=== PATIENT | male | born 1960 | race Caucasian/White ===

== ENCOUNTER 2018-08-26 10:37 | Inpatient (IN) | payer OTHER ==
[2018-08-26] MEDS ORDERED: SODIUM CHLORIDE FLUSH SYRINGE 10 ML IV PRN (12:06)
[2018-08-26] MEDS ORDERED: TYLENOL PO PRN (12:06)
[2018-08-26] MEDS ORDERED: ZOFRAN IV PRN (12:06)
[2018-08-26] MEDS ORDERED: NITROSTAT SL PRN (12:06)
[2018-08-26] MEDS ORDERED: NARCAN 0.4 MG/1 ML IV PRN (12:06)
[2018-08-26] MEDS ORDERED: MORPHINE IV PRN (12:06)
[2018-08-26] MEDS ORDERED: PROVENTIL IH PRN (12:06)
--- NOTE | 2018-08-26 12:14 | History and Physical Report ---
History of Present Illness Date of examination: 08/26/18 Date of admission: 08/26/18 11:08 Chief complaint: shortness of breath History of present illness: 57 year male with past medical hx CHF, last known EF of 32% presenting from direct admit from the PCP office. Patient reports that he has hx of CHF but in the last 2 years has been lost to follow up. He presented to his primary care doctor today complaining of orthopnea for the past 2 weeks. He denies any chest pain, nausea, vomiting or diarrhea, He has been out of his medications for about 2 years. He reports that he was previously evaluated for AICD but at the time chose not to proceed. Past History Past Medical History: heart failure, hypertension Past Surgical History: Other (eye surgery) Social history: Family history: no significant family history Medications and Allergies Allergies Allergy/AdvReac Type Severity Reaction Status Date / Time No Known Allergies Allergy Verified 08/26/18 10:40 Active Meds: Active Medications Acetaminophen (Tylenol) 650 mg PO Q4H PRN PRN Reason: Pain MILD(1-3)/Fever >100.5/YAN Albuterol (Proventil) 2.5 mg IH Q3HRT PRN PRN Reason: Shortness Of Breath Carvedilol (Coreg) 12.5 mg PO BID WANDA Famotidine (Pepcid) 10 mg PO BID WANDA Furosemide (Lasix) 40 mg IV BID@0600,1800 WANDA Lisinopril (Zestril) 5 mg PO QDAY WANDA Morphine Sulfate (Morphine) 2 mg IV Q4H PRN PRN Reason: Pain, Moderate (4-6) Naloxone HCl (Narcan 0.4 Mg/1 Ml) 0.1 mg IV Q2MIN PRN PRN Reason: Res Rate </= 8 or 02 SAT < 92% Nitroglycerin (Nitrostat) 0.4 mg SL .Q5MIN PRN PRN Reason: Chest Pain Ondansetron HCl (Zofran) 4 mg IV Q8H PRN PRN Reason: Nausea And Vomiting Sodium Chloride (Sodium Chloride Flush Syringe 10 Ml) 10 ml IV BID WANDA Sodium Chloride (Sodium Chloride Flush Syringe 10 Ml) 10 ml IV PRN PRN PRN Reason: LINE FLUSH Review of Systems All systems: negative Constitutional: no weight loss, no weight gain, no fever, no chills, no sweats, no night sweats, no fatigue, no weakness, no malaise, no lethargy, no poor appetite, no daytime sleepiness, no chronic pain Cardiovascular: orthopnea, shortness of breath, dyspnea on exertion Respiratory: shortness of breath, dyspnea on exertion, no cough, no cough with sputum, no excessive sputum, no hemoptysis, no congestion, no wheezing, no pleurisy, no pain, no sleep apnea, no respiratory infections, no home oxygen Gastrointestinal: no abdominal pain, no nausea, no diarrhea, no constipation, no change in bowel habits, no hematemesis, no melena, no loss of appetite, no early satiety, no indigestion, no belching, no dyspepsia/bloating, no lactose intolerance Genitourinary Male: no hematuria, no discharge, no urinary frequency Rectal: no pain, no bleeding Musculoskeletal: no neck pain, no shooting arm pain, no low back pain, no shooting leg pain, no morning stiffness, no muscle weakness, no atrophy, no fractures Integumentary: no rash, no pruritis, no redness, no wounds, no lesions, no darkening of skin, no acne, no dryness Neurological: no transient paralysis, no tingling, no syncope, no aphasia, no change in mentation, no sensory deficit, no double vision, no hearing difficulties Psychiatric: no memory loss, no insomnia, no change in appetite Endocrine: no polyphagia, no polydipsia, no polyuria, no weight change, no deepening of the voice Hematologic/Lymphatic: no easy bruising Exam - Constitutional General appearance: Present: mild distress. Absent: well-nourished - EENT Eyes: Present: PERRL, EOM intact ENT: hearing intact, clear oral mucosa, dentition normal - Neck Neck: Present: supple, normal ROM - Respiratory Respiratory effort: normal Respiratory: bilateral: CTA - Cardiovascular Rhythm: regular Heart Sounds: Absent: systolic murmur, diastolic murmur - Extremities Extremities: no ischemia, pulses intact, pulses symmetrical, No edema, normal temperature, normal color, Full ROM Extremity abnormal: edema (1+ bilaterally) Peripheral Pulses: within normal limits - Abdominal General gastrointestinal: Present: soft, non-tender, non-distended, normal bowel sounds - Integumentary Integumentary: Present: clear, warm, dry - Musculoskeletal Musculoskeletal: strength equal bilaterally - Psychiatric Psychiatric: appropriate mood/affect, cooperative - Neurologic Neurologic: CNII-XII intact, moves all extremities - Allied Health Allied health notes reviewed: nursing Results - Labs CBC & Chem 7: 08/26/18 14:58 08/26/18 14:58 Assessment and Plan Assessment and plan: 57 year male with past medical hx CHF, last known EF of 32% presenting from direct admit from the PCP office. Patient reports that he has hx of CHF but in the last 2 years has been lost to follow up. He presented to his primary care doctor today complaining of orthopnea for the past 2 weeks. He denies any chest pain, nausea, vomiting or diarrhea, He has been out of his medications for about 2 years. He reports that he was previously evaluated for AICD but at the time chose not to proceed. Exertional dyspnea concerning for Acute on Chronic Systolic Heart failure exacerbation PVC ON EKG Gastritis by hx Hyperglycemia by hx Hyperlipidemia BPH s/p vasectomy in 1993 in [place] hx of Bilateral eye surgery plan Admit to telemetry CHF protocol, daily weight, strict I/O, low salt IV lasix, ASA, BB, PPI ECHO Chest Xray Cardiology consult DVT/GI prophy Plan of care discussed with patient and family and cardiology Advance Directives: Yes Plan of care discussed with patient/family: Yes
[2018-08-26 15:13] LABS: Basophils % (Auto) 0.9 % (0.0-1.8); Eosinophils % (Auto) 0.6 % (0.0-4.3); Hematocrit 44.1 % (35.5-45.6); Hemoglobin 14.7 gm/dl (11.8-15.2); Lymphocytes # (Auto) 1.1 K/mm3 (1.2-5.4); Lymphocytes % (Auto) 22.2 % (13.4-35.0); Mean Corpuscular HGB Conc 33 % (32-34); Mean Corpuscular Volume 89 fl (84-94); Monocytes # (Auto) 0.4 K/mm3 (0.0-0.8); Monocytes % (Auto) 9.2 % (0.0-7.3); Red Blood Count 4.96 M/mm3 (3.65-5.03)
[2018-08-26 15:15] LABS: Platelet Count 158 K/mm3 (140-440)
[2018-08-26 16:11] LABS: BUN/Creatinine Ratio 23; Blood Urea Nitrogen 18 mg/dL (9-20); Calcium 8.7 mg/dL (8.4-10.2); Hemolysis Index 12
[2018-08-26] MEDS: LASIX IV SCH (19:03)
--- NOTE | 2018-08-26 19:49 | Consultation ---
History of Present Illness Consult date: 08/26/18 Consult reason: shortness of breath History of present illness: Patient is a 57-year-old man admitted from his primary care doctor's office for increasing shortness of breath and abdominal distention. Patient reports a history of long-standing, nonischemic cardiomyopathy. He states that several years ago he underwent a cardiac catheterization that demonstrated normal coronary arteries, left ventricular ejection fraction about 30%. He was placed on standard heart failure medical therapy, but could not continue follow-up with his sports psychologist due to a change in his medical insurance. His primary care doctor continued refill of his medications until about 2 years ago when he completely stopped taking medications. It is unclear why he decided to discontinue medical therapy. Currently he has no chest pain, but has intermittent palpitations. He describes a history of ventricular ectopy which has been on his ECGs and during his pulse analysis for several years. EKG today is sinus rhythm, frequent, multiform PVCs, right bundle branch block but no acute ST or T-wave changes. A chest x- ray is pending. Past History Past Medical History: heart failure, hypertension Past Surgical History: Other (eye surgery) Social history: Family history: no significant family history Medications and Allergies Allergies Allergy/AdvReac Type Severity Reaction Status Date / Time No Known Allergies Allergy Verified 08/26/18 10:40 Active Meds: Active Medications Acetaminophen (Tylenol) 650 mg PO Q4H PRN PRN Reason: Pain MILD(1-3)/Fever >100.5/YAN Albuterol (Proventil) 2.5 mg IH Q3HRT PRN PRN Reason: Shortness Of Breath Carvedilol (Coreg) 12.5 mg PO BID WANDA Famotidine (Pepcid) 10 mg PO BID [facility] Furosemide (Lasix) 40 mg IV BID@0600,1800 WANDA Last Admin: 08/26/18 19:03 Dose: 40 mg Documented by: Lisinopril (Zestril) 5 mg PO QDAY WANDA Morphine Sulfate (Morphine) 2 mg IV Q4H PRN PRN Reason: Pain, Moderate (4-6) Naloxone HCl (Narcan 0.4 Mg/1 Ml) 0.1 mg IV Q2MIN PRN PRN Reason: Res Rate </= 8 or 02 SAT < 92% Nitroglycerin (Nitrostat) 0.4 mg SL .Q5MIN PRN PRN Reason: Chest Pain Ondansetron HCl (Zofran) 4 mg IV Q8H PRN PRN Reason: Nausea And Vomiting Sodium Chloride (Sodium Chloride Flush Syringe 10 Ml) 10 ml IV BID WANDA Sodium Chloride (Sodium Chloride Flush Syringe 10 Ml) 10 ml IV PRN PRN PRN Reason: LINE FLUSH Review of Systems Cardiovascular: palpitations, shortness of breath, no chest pain, no orthopnea, no rapid/irregular heart beat, no edema, no syncope, no lightheadedness Physical Examination Vital Signs Pulse 112 H 08/26/18 12:14 General appearance: no acute distress HEENT: Positive: PERRL Neck: Positive: neck supple Cardiac: Positive: Irregularly Regular Lungs: Positive: Decreased Breath Sounds Neuro: Positive: Grossly Intact Abdomen: Positive: Soft Male genitourinary: Positive: deferred Skin: Positive: Clear Extremities: Absent: edema Results 08/26/18 14:58 08/26/18 14:58 CBC 08/26/18 Range/Units 14:58 WBC 4.8 (4.5-11.0) K/mm3 RBC 4.96 (3.65-5.03) M/mm3 Hgb 14.7 (11.8-15.2) gm/dl Hct 44.1 (35.5-45.6) % Plt Count 158 (140-440) K/mm3 Lymph # 1.1 L (1.2-5.4) K/mm3 [place] # 0.4 (0.0-0.8) K/mm3 Eos # 0.0 (0.0-0.4) K/mm3 Baso # 0.0 (0.0-0.1) K/mm3 Comprehensive Metabolic Panel 08/26/18 Range/Units 14:58 Sodium 137 (137-145) mmol/L Potassium 3.9 (3.6-5.0) mmol/L Chloride 102.7 (98-107) mmol/L Carbon Dioxide 22 (22-30) mmol/L BUN 18 (9-20) mg/dL Creatinine 0.8 (0.8-1.5) mg/dL Glucose 142 H (75-100) mg/dL Calcium 8.7 (8.4-10.2) mg/dL EKG interpretations - Telemetry EKG Rhythm: Sinus Rhythm Assessment and Plan - Patient Problems (1) Shortness of breath Current Visit: Yes Status: Acute Plan to address problem: Shortness of breath and abnormal distention in a patient with a long history of dilated cardiomyopathy with systolic systolic left ventricular dysfunction, noncompliant with medical therapy for 2 years. We will get an echocardiogram for left ventricular function assessment, and resume standard guidelines directed medical therapy for systolic heart failure.
[2018-08-26 19:52] LABS: Creatine Kinase MB 1.9 ng/mL (0.0-4.0)
--- NOTE | 2018-08-26 19:53 | XRay Report ---
PROCEDURE: XR CHEST 1V AP TECHNIQUE: Frontal portable view of the chest HISTORY: chf COMPARISONS: Chest x-ray dated August 17, 2014 is not available for review at the time of this dictati on. FINDINGS: There is prominence of the interstitial markings in both lungs. There is evidence of a moderate sized right pleural fluid collection and small left pleural fluid col lection with associated pulmonary consolidation in both lung bases, right greater than left. The cardiac silhouette is enlarged. There is prominence of the pulmonary venous vasculature suggestive of pulmonary venous congestion. The thoracic aorta is unremarkable. The bony structures are notable for degenerative change of the shoulder joints bilaterally. IMPRESSION: 1. Enlarged cardiac silhouette with prominence of the interstitial markings, bilateral pleural effusi ons, right greater than left and evidence of pulmonary venous congestion. These findings are most sug gestive of CHF. This document is electronically signed by Ngozi Galvan MD., August 26 2018 07:51:53 PM ET
[2018-08-26] MEDS: PEPCID PO SCH (21:43)
[2018-08-26] MEDS: COREG PO SCH (21:43)
[2018-08-26] MEDS: SODIUM CHLORIDE FLUSH SYRINGE 10 ML IV SCH (21:44)
[2018-08-27 01:16] LABS: Creatine Kinase MB 1.7 ng/mL (0.0-4.0)
[2018-08-27] MEDS: LASIX IV SCH ×2 (05:40→18:16)
[2018-08-27 06:59] LABS: Chol/HDL Ratio 2.48 %
[2018-08-27] MEDS: ZESTRIL PO SCH ×2 (10:30→10:31)
[2018-08-27] MEDS: ALDACTONE PO SCH (10:30)
[2018-08-27] MEDS: COREG PO SCH ×2 (10:30→22:59)
[2018-08-27] MEDS: SODIUM CHLORIDE FLUSH SYRINGE 10 ML IV SCH ×2 (10:31→21:22)
[2018-08-27] MEDS: PEPCID PO SCH ×2 (10:31→21:22)
--- NOTE | 2018-08-27 12:27 | Progress Note ---
Assessment and Plan - Patient Problems (1) Shortness of breath Current Visit: Yes Status: Acute Plan to address problem: Shortness of breath and abnormal distention in a patient with a long history of dilated cardiomyopathy with systolic systolic left ventricular dysfunction, noncompliant with medical therapy for 2 years. His chest x-ray reviewed by me shows a moderate sized unilateral right pleural effusion, possibly due to heart failure. Echocardiogram shows a severe dilated cardiomyopathy with left ventricular ejection fraction approximately 15%. Recommendations: Continue intravenous diuresis, LUIS inhibitor and beta kevon therapy. Add intravenous milrinone for inotropic support. Add baby aspirin and spironolactone. Consider pulmonary consultation for right pleural effusion. Subjective Date of service: 08/27/18 Interval history: Patient feels better, shortness of breath has improved, still has some abdominal distention. No edema. No chest pain. His chest x-ray reviewed by me shows a moderate sized unilateral right pleural effusion, possibly due to heart failure. Echocardiogram shows a severe dilated cardiomyopathy with left ventricular ejection fraction approximately 15%. Objective Vital Signs Temp Pulse Resp BP BP Pulse Ox 08/27/18 08:00 97.6 F 67 18 123/74 98 08/27/18 06:04 70 18 98 08/27/18 05:16 98.0 F 47 L 18 107/66 97 08/27/18 04:00 68 08/27/18 00:14 98 08/26/18 23:47 98.0 F 48 L 20 99/76 97 08/26/18 21:43 65 129/80 08/26/18 20:14 52 L 08/26/18 17:22 98.1 F 18 98/62 08/26/18 12:26 97.9 F 18 137/86 - Physical Examination General: No Apparent Distress HEENT: Positive: PERRL Neck: Positive: neck supple Cardiac: Positive: Reg Rate and Rhythm Lungs: Positive: Decreased Breath Sounds Neuro: Positive: Grossly Intact Abdomen: Positive: Soft Skin: Positive: Clear Extremities: Absent: edema - Labs and Meds Cardiac Enzymes 08/26/18 08/27/18 Range/Units 18:52 00:49 CK-MB (CK-2) 1.9 1.7 (0.0-4.0) ng/mL Lipids 08/27/18 Range/Units 05:55 Triglycerides 58 (2-149) mg/dL Cholesterol 117 (50-199) mg/dL HDL Cholesterol 47 (40-59) mg/dL Cholesterol/HDL Ratio 2.48 % CBC 08/26/18 Range/Units 14:58 WBC 4.8 (4.5-11.0) K/mm3 RBC 4.96 (3.65-5.03) M/mm3 Hgb 14.7 (11.8-15.2) gm/dl Hct 44.1 (35.5-45.6) % Plt Count 158 (140-440) K/mm3 Lymph # 1.1 L (1.2-5.4) K/mm3 [place] # 0.4 (0.0-0.8) K/mm3 Eos # 0.0 (0.0-0.4) K/mm3 Baso # 0.0 (0.0-0.1) K/mm3 Comprehensive Metabolic Panel 08/26/18 Range/Units 14:58 Sodium 137 (137-145) mmol/L Potassium 3.9 (3.6-5.0) mmol/L Chloride 102.7 (98-107) mmol/L Carbon Dioxide 22 (22-30) mmol/L BUN 18 (9-20) mg/dL Creatinine 0.8 (0.8-1.5) mg/dL Glucose 142 H (75-100) mg/dL Calcium 8.7 (8.4-10.2) mg/dL
[2018-08-27] MEDS: HALFPRIN EC PO SCH (16:52)
[2018-08-27] MEDS: MILRINONE-D5W 20 MG/100 ML 20 MG/100 ML BAG IV SCH (16:52)
--- NOTE | 2018-08-27 21:06 | Progress Note ---
Assessment and Plan Assessment and plan: 57 year male with past medical hx CHF, last known EF of 32% presenting from direct admit from the PCP office. Patient reports that he has hx of CHF but in the last 2 years has been lost to follow up. He presented to his primary care doctor today complaining of orthopnea for the past 2 weeks. He denies any chest pain, nausea, vomiting or diarrhea, He has been out of his medications for about 2 years. He reports that he was previously evaluated for AICD but at the time chose not to proceed. --Acute on Chronic Systolic Heart failure exacerbation EF 10-15% , current medications Input output monitoring, low sodium diet, fluid restriction Cardiology following, possible evaluation for AICD . --Hypertension; continue current antihypertensives and when necessary medications --Acute gastritis; PPI, supportive care --Right pleural effusion; continue diuresis Pulmonary consult, possible thoracentesis if needed --DVT prophylaxis; Lovenox Monitor the patient closely and adjust management as needed Plan of care is reviewed with the patient and family members in the room History Interval history: Patient seen and examined medical records reviewed Patient feels slightly better mild shortness of breath Vital Signs noted Hospitalist Physical - Constitutional Vitals: Temp Pulse Resp BP Pulse Ox 98.4 F 56 L 16 108/74 98 08/27/18 19:27 08/27/18 19:27 08/27/18 20:35 08/27/18 19:27 08/27/18 20:35 General appearance: Present: no acute distress, well-nourished - EENT Eyes: Present: PERRL, EOM intact - Neck Neck: Present: supple, normal ROM - Respiratory Respiratory effort: normal Respiratory: bilateral: diminished, rales, negative: rhonchi, wheezing - Cardiovascular Rhythm: regular Heart Sounds: Present: S1 & S2 - Extremities Extremities: no ischemia Extremity abnormal: edema - Abdominal General gastrointestinal: soft, non-tender, non-distended, normal bowel sounds - Integumentary Integumentary: Present: clear, warm - Psychiatric Psychiatric: appropriate mood/affect, cooperative - Neurologic Neurologic: CNII-XII intact, moves all extremities Results - Labs CBC & Chem 7: 08/26/18 14:58 08/26/18 14:58 Labs: Laboratory Last Values WBC 4.8 K/mm3 (4.5-11.0) 08/26/18 14:58 RBC 4.96 M/mm3 (3.65-5.03) 08/26/18 14:58 Hgb 14.7 gm/dl (11.8-15.2) 08/26/18 14:58 Hct 44.1 % (35.5-45.6) 08/26/18 14:58 MCV 89 fl (84-94) 08/26/18 14:58 MCH 30 pg (28-32) 08/26/18 14:58 MCHC 33 % (32-34) 08/26/18 14:58 RDW 14.0 % (13.2-15.2) 08/26/18 14:58 Plt Count 158 K/mm3 (140-440) 08/26/18 14:58 Lymph % (Auto) 22.2 % (13.4-35.0) 08/26/18 14:58 [place] % (Auto) 9.2 % (0.0-7.3) H 08/26/18 14:58 Eos % (Auto) 0.6 % (0.0-4.3) 08/26/18 14:58 Baso % (Auto) 0.9 % (0.0-1.8) 08/26/18 14:58 Lymph # 1.1 K/mm3 (1.2-5.4) L 08/26/18 14:58 [place] # 0.4 K/mm3 (0.0-0.8) 08/26/18 14:58 Eos # 0.0 K/mm3 (0.0-0.4) 08/26/18 14:58 Baso # 0.0 K/mm3 (0.0-0.1) 08/26/18 14:58 Seg Neutrophils % 67.1 % (40.0-70.0) 08/26/18 14:58 Seg Neutrophils # 3.2 K/mm3 (1.8-7.7) 08/26/18 14:58 Sodium 137 mmol/L (137-145) 08/26/18 14:58 Potassium 3.9 mmol/L (3.6-5.0) 08/26/18 14:58 Chloride 102.7 mmol/L (98-107) 08/26/18 14:58 Carbon Dioxide 22 mmol/L (22-30) 08/26/18 14:58 Anion Gap 16 mmol/L 08/26/18 14:58 BUN 18 mg/dL (9-20) 08/26/18 14:58 Creatinine 0.8 mg/dL (0.8-1.5) 08/26/18 14:58 Estimated GFR > 60 ml/min 08/26/18 14:58 BUN/Creatinine Ratio 23 % 08/26/18 14:58 Glucose 142 mg/dL (75-100) H 08/26/18 14:58 Calcium 8.7 mg/dL (8.4-10.2) 08/26/18 14:58 Total Creatine Kinase 62 units/L (55-170) 08/27/18 00:49 CK-MB (CK-2) 1.7 ng/mL (0.0-4.0) 08/27/18 00:49 CK-MB (CK-2) Rel Index 2.7 (0-4) 08/27/18 00:49 Troponin T < 0.010 ng/mL (0.00-0.029) 08/27/18 00:49 NT-Pro-B Natriuret Pep 6923 pg/mL (0-900) H 08/26/18 14:58 Triglycerides 58 mg/dL (2-149) 08/27/18 05:55 Cholesterol 117 mg/dL (50-199) 08/27/18 05:55 LDL Cholesterol Direct 70 mg/dL (50-130) 08/27/18 05:55 HDL Cholesterol 47 mg/dL (40-59) 08/27/18 05:55 Cholesterol/HDL Ratio 2.48 % 08/27/18 05:55 Active Medications - Current Medications Current Medications: Generic Name Dose Route Start Last Admin Trade Name Freq PRN Reason Stop Dose Admin Acetaminophen 650 mg 08/26/18 12:06 Tylenol PO Q4H PRN Pain MILD(1-3)/Fever >100.5/YAN Albuterol 2.5 mg 08/26/18 12:06 Proventil IH Q3HRT PRN Shortness Of Breath Aspirin 81 mg 08/27/18 13:00 08/27/18 16:52 Halfprin Ec PO 81 mg QDAY WANDA Administration Carvedilol 12.5 mg 08/26/18 22:00 08/27/18 10:30 Coreg PO 12.5 mg BID WANDA Administration Famotidine 10 mg 08/26/18 22:00 08/27/18 10:31 Pepcid PO 10 mg BID WANDA Administration Furosemide 40 mg 08/26/18 18:00 08/27/18 18:16 Lasix IV 40 mg BID@0600,1800 [facility] Administration Milrinone Lactate/Dextrose 20 mg in 100 mls @ 8.831 mls/hr 08/27/18 13:00 08/27/18 16:52 Milrinone-D5w 20 Mg/100 Ml IV 08/30/18 12:59 0.375 mcg/kg/min TITR WANDA 8.831 mls/hr Administration 0.375 MCG/KG/MIN Lisinopril 5 mg 08/27/18 10:00 08/27/18 10:30 Zestril PO Not Given QDAY [facility] Morphine Sulfate 2 mg 08/26/18 12:06 Morphine IV Q4H PRN Pain, Moderate (4-6) Naloxone HCl 0.1 mg 08/26/18 12:06 Narcan 0.4 Mg/1 Ml IV Q2MIN PRN Res Rate </= 8 or 02 SAT < 92% Nitroglycerin 0.4 mg 08/26/18 12:06 Nitrostat SL .Q5MIN PRN Chest Pain Ondansetron HCl 4 mg 08/26/18 12:06 Zofran IV Q8H PRN Nausea And Vomiting Sodium Chloride 10 ml 08/26/18 22:00 08/27/18 10:31 Sodium Chloride Flush Syringe 10 Ml IV 10 ml BID WANDA Administration Sodium Chloride 10 ml 08/26/18 12:06 Sodium Chloride Flush Syringe 10 Ml IV PRN PRN LINE FLUSH Spironolactone 25 mg 08/27/18 10:00 08/27/18 10:30 Aldactone PO 25 mg QDAY WANDA Administration
[2018-08-28] MEDS: MILRINONE-D5W 20 MG/100 ML 20 MG/100 ML BAG IV SCH ×2 (01:41→18:06)
[2018-08-28] MEDS: LASIX IV SCH ×2 (05:50→18:06)
[2018-08-28] MEDS: PEPCID PO SCH ×2 (10:25→23:15)
[2018-08-28] MEDS: COREG PO SCH ×2 (10:25→23:19)
[2018-08-28] MEDS: HALFPRIN EC PO SCH (10:25)
[2018-08-28] MEDS: ALDACTONE PO SCH (10:25)
[2018-08-28] MEDS: SODIUM CHLORIDE FLUSH SYRINGE 10 ML IV SCH ×2 (10:26→23:19)
[2018-08-28] MEDS: ZESTRIL PO SCH (10:32)
--- NOTE | 2018-08-28 11:19 | Progress Note ---
Assessment and Plan Acute systolic heart failure Right pleural effusion Long history of dilated cardiomyopathy noncompliant with medical therapy for 2 years. Echocardiogram shows a severe dilated cardiomyopathy with left ventricular ejection fraction approximately 15%. Recommendations: Continue aggressive management of systolic heart failure to include a trial of intravenous milrinone for inotropic support. Consider pulmonary consultation for right pleural effusion. Will check a TSH and magnesium. LifeVest placement before discharge. Subjective Date of service: 08/28/18 Interval history: Patient has no complaints. Sinus rhythm with frequent PVCs on telemetry. Objective Vital Signs Temp Pulse Resp BP BP Pulse Ox 08/28/18 10:32 77 117/73 08/28/18 10:25 77 117/73 08/28/18 09:03 98.3 F 18 117/73 08/28/18 05:49 104/65 08/28/18 04:36 105/72 08/28/18 03:30 72/36 08/27/18 22:43 105/53 08/27/18 20:35 16 98 08/27/18 19:27 98.4 F 56 L 16 108/74 96 08/27/18 17:53 97.6 F 65 18 103/53 96 08/27/18 12:24 98.0 F 18 107/77 08/27/18 12:00 78 16 97 - Physical Examination General: No Apparent Distress HEENT: Positive: PERRL Neck: Positive: neck supple Cardiac: Positive: Irregularly Regular Lungs: Positive: Decreased Breath Sounds, Rales Neuro: Positive: Grossly Intact Extremities: Absent: edema
--- NOTE | 2018-08-28 19:12 | Progress Note ---
Assessment and Plan Assessment and plan: 57 year male with past medical hx CHF, last known EF of 32% presenting from direct admit from the PCP office. Patient reports that he has hx of CHF but in the last 2 years has been lost to follow up. He presented to his primary care doctor today complaining of orthopnea for the past 2 weeks. He denies any chest pain, nausea, vomiting or diarrhea, He has been out of his medications for about 2 years. He reports that he was previously evaluated for AICD but at the time chose not to proceed. --Right pleural effusion; obviously secondary to CHF continue diuresis,Pulmonary consult if no improvement with diuresis possible thoracentesis if needed --Acute on Chronic Systolic Heart failure exacerbation EF 10-15% , current medications,on Milrinone drip per cardiology Input output monitoring, low sodium diet, fluid restriction Cardiology following, possible evaluation for AICD . --Hypertension; continue current antihypertensives and when necessary medications --Acute gastritis; PPI, supportive care --DVT prophylaxis; Lovenox Monitor the patient closely and adjust management as needed Disposition; discharged home with a LifeVest when available And then patient is stable Discussed with case management, LifeVest will be available in 1-2 days Plan of care is reviewed with the patient, family members at the bedside And his nurse History Interval history: Patient seen and examined medical records reviewed patient is very concerned about his heart Explained in detail, congestive heart failure, LifeVest Evaluation for ICD, and current management Patient is comfortable in no new complaints Vital signs noted Hospitalist Physical - Constitutional Vitals: Temp Pulse Resp BP Pulse Ox 97.6 F 61 18 100/72 98 08/28/18 17:24 08/28/18 17:24 08/28/18 17:24 08/28/18 17:24 08/28/18 17:24 General appearance: Present: no acute distress, well-nourished - EENT Eyes: Present: PERRL, EOM intact - Neck Neck: Present: supple, normal ROM - Respiratory Respiratory effort: normal Respiratory: bilateral: diminished, rales, negative: rhonchi, wheezing - Cardiovascular Rhythm: regular Heart Sounds: Present: S1 & S2 - Extremities Extremities: no ischemia, No edema - Abdominal General gastrointestinal: soft, non-tender, non-distended, normal bowel sounds - Integumentary Integumentary: Present: clear, warm - Psychiatric Psychiatric: appropriate mood/affect, cooperative - Neurologic Neurologic: CNII-XII intact, moves all extremities Results - Labs CBC & Chem 7: 08/26/18 14:58 08/26/18 14:58 Labs: Laboratory Last Values WBC 4.8 K/mm3 (4.5-11.0) 08/26/18 14:58 RBC 4.96 M/mm3 (3.65-5.03) 08/26/18 14:58 Hgb 14.7 gm/dl (11.8-15.2) 08/26/18 14:58 Hct 44.1 % (35.5-45.6) 08/26/18 14:58 MCV 89 fl (84-94) 08/26/18 14:58 MCH 30 pg (28-32) 08/26/18 14:58 MCHC 33 % (32-34) 08/26/18 14:58 RDW 14.0 % (13.2-15.2) 08/26/18 14:58 Plt Count 158 K/mm3 (140-440) 08/26/18 14:58 Lymph % (Auto) 22.2 % (13.4-35.0) 08/26/18 14:58 [place] % (Auto) 9.2 % (0.0-7.3) H 08/26/18 14:58 Eos % (Auto) 0.6 % (0.0-4.3) 08/26/18 14:58 Baso % (Auto) 0.9 % (0.0-1.8) 08/26/18 14:58 Lymph # 1.1 K/mm3 (1.2-5.4) L 08/26/18 14:58 [place] # 0.4 K/mm3 (0.0-0.8) 08/26/18 14:58 Eos # 0.0 K/mm3 (0.0-0.4) 08/26/18 14:58 Baso # 0.0 K/mm3 (0.0-0.1) 08/26/18 14:58 Seg Neutrophils % 67.1 % (40.0-70.0) 08/26/18 14:58 Seg Neutrophils # 3.2 K/mm3 (1.8-7.7) 08/26/18 14:58 Sodium 137 mmol/L (137-145) 08/26/18 14:58 Potassium 3.9 mmol/L (3.6-5.0) 08/26/18 14:58 Chloride 102.7 mmol/L (98-107) 08/26/18 14:58 Carbon Dioxide 22 mmol/L (22-30) 08/26/18 14:58 Anion Gap 16 mmol/L 08/26/18 14:58 BUN 18 mg/dL (9-20) 08/26/18 14:58 Creatinine 0.8 mg/dL (0.8-1.5) 08/26/18 14:58 Estimated GFR > 60 ml/min 08/26/18 14:58 BUN/Creatinine Ratio 23 % 08/26/18 14:58 Glucose 142 mg/dL (75-100) H 08/26/18 14:58 Calcium 8.7 mg/dL (8.4-10.2) 08/26/18 14:58 Magnesium 1.60 mg/dL (1.7-2.3) L 08/28/18 13:28 Total Creatine Kinase 62 units/L (55-170) 08/27/18 00:49 CK-MB (CK-2) 1.7 ng/mL (0.0-4.0) 08/27/18 00:49 CK-MB (CK-2) Rel Index 2.7 (0-4) 08/27/18 00:49 Troponin T < 0.010 ng/mL (0.00-0.029) 08/27/18 00:49 NT-Pro-B Natriuret Pep 6923 pg/mL (0-900) H 08/26/18 14:58 Triglycerides 58 mg/dL (2-149) 08/27/18 05:55 Cholesterol 117 mg/dL (50-199) 08/27/18 05:55 LDL Cholesterol Direct 70 mg/dL (50-130) 08/27/18 05:55 HDL Cholesterol 47 mg/dL (40-59) 08/27/18 05:55 Cholesterol/HDL Ratio 2.48 % 08/27/18 05:55 TSH 1.650 mlU/mL (0.270-4.200) 08/28/18 13:28 Free T4 1.31 ng/dL (0.76-1.46) 08/28/18 13:28 Active Medications - Current Medications Current Medications: Generic Name Dose Route Start Last Admin Trade Name Freq PRN Reason Stop Dose Admin Acetaminophen 650 mg 08/26/18 12:06 Tylenol PO Q4H PRN Pain MILD(1-3)/Fever >100.5/YAN Albuterol 2.5 mg 08/26/18 12:06 Proventil IH Q3HRT PRN Shortness Of Breath Aspirin 81 mg 08/27/18 13:00 08/28/18 10:25 Halfprin Ec PO 81 mg QDAY WANDA Administration Carvedilol 12.5 mg 08/26/18 22:00 08/28/18 10:25 Coreg PO 12.5 mg BID WANDA Administration Famotidine 10 mg 08/26/18 22:00 08/28/18 10:25 Pepcid PO 10 mg BID WANDA Administration Furosemide 40 mg 08/26/18 18:00 08/28/18 18:06 Lasix IV 40 mg BID@0600,1800 WANDA Administration Milrinone Lactate/Dextrose 20 mg in 100 mls @ 8.831 mls/hr 08/27/18 13:00 08/28/18 18:06 Milrinone-D5w 20 Mg/100 Ml IV 08/30/18 12:59 0.375 mcg/kg/min TITR WANDA 8.831 mls/hr Administration 0.375 MCG/KG/MIN Lisinopril 2.5 mg 08/28/18 10:30 08/28/18 10:32 Zestril PO 2.5 mg QDAY WANDA Administration Morphine Sulfate 2 mg 08/26/18 12:06 Morphine IV Q4H PRN Pain, Moderate (4-6) Naloxone HCl 0.1 mg 08/26/18 12:06 Narcan 0.4 Mg/1 Ml IV Q2MIN PRN Res Rate </= 8 or 02 SAT < 92% Nitroglycerin 0.4 mg 08/26/18 12:06 Nitrostat SL .Q5MIN PRN Chest Pain Ondansetron HCl 4 mg 08/26/18 12:06 Zofran IV Q8H PRN Nausea And Vomiting Sodium Chloride 10 ml 08/26/18 22:00 08/28/18 10:26 Sodium Chloride Flush Syringe 10 Ml IV 10 ml BID WANDA Administration Sodium Chloride 10 ml 08/26/18 12:06 Sodium Chloride Flush Syringe 10 Ml IV PRN PRN LINE FLUSH Spironolactone 25 mg 08/27/18 10:00 08/28/18 10:25 Aldactone PO 25 mg QDAY WANDA Administration
[2018-08-29] MEDS: MILRINONE-D5W 20 MG/100 ML 20 MG/100 ML BAG IV SCH ×2 (07:09→17:41)
[2018-08-29] MEDS: LASIX IV SCH ×2 (07:10→19:43)
[2018-08-29] MEDS ORDERED: MAGNESIUM SULFATE 2GM/50ML 2 GM/50 ML BAG IV ONE (10:04)
--- NOTE | 2018-08-29 10:10 | Progress Note ---
Assessment and Plan Assessment and plan: 57 year male with past medical hx CHF, last known EF of 32% presenting from direct admit from the PCP office. Patient reports that he has hx of CHF but in the last 2 years has been lost to follow up. He presented to his primary care doctor today complaining of orthopnea for the past 2 weeks. He denies any chest pain, nausea, vomiting or diarrhea, He has been out of his medications for about 2 years. He reports that he was previously evaluated for AICD but at the time patient chose not to proceed. --Acute on Chronic Systolic Heart failure exacerbation EF 10-15% , on anti-failure medications, Cardiology started milrinone drip for 48 hours Input output monitoring, low sodium diet, fluid restriction possible evaluation for AICD as outpatient LifeVest prior to discharge --Right pleural effusion; secondary to CHF continue diuresis, Pulmonary consult and possible thoracentesis if needed --Hypertension; continue current antihypertensives and when necessary medications --Acute gastritis; PPI, supportive care --DVT prophylaxis; Lovenox Monitor the patient closely and adjust management as needed Ambulate as tolerated LifeVest expected this evening or tomorrow per case management Possible discharge tomorrow if stable Plan of care is reviewed with the patient and multiple family members at the bedside Answered all the questions History Interval history: Patient seen and examined medical records reviewed Patient feels slightly better, on milrinone drip Multiple family members in the room Patient denies chest pain or shortness of breath Vital signs noted Hospitalist Physical - Constitutional Vitals: Temp Pulse Resp BP Pulse Ox 98.3 F 36 L 18 113/51 96 08/29/18 09:17 08/29/18 09:17 08/29/18 09:17 08/29/18 09:17 08/29/18 09:17 General appearance: Present: no acute distress, well-nourished - EENT Eyes: Present: PERRL, EOM intact - Neck Neck: Present: supple, normal ROM - Respiratory Respiratory effort: normal Respiratory: bilateral: diminished, rales, negative: rhonchi, wheezing - Cardiovascular Rhythm: regular Heart Sounds: Present: S1 & S2 - Extremities Extremities: no ischemia, No edema - Abdominal General gastrointestinal: soft, non-tender, non-distended, normal bowel sounds - Integumentary Integumentary: Present: clear, warm - Psychiatric Psychiatric: appropriate mood/affect, cooperative - Neurologic Neurologic: CNII-XII intact, moves all extremities Results - Labs CBC & Chem 7: 08/26/18 14:58 08/26/18 14:58 Labs: Laboratory Last Values WBC 4.8 K/mm3 (4.5-11.0) 08/26/18 14:58 RBC 4.96 M/mm3 (3.65-5.03) 08/26/18 14:58 Hgb 14.7 gm/dl (11.8-15.2) 08/26/18 14:58 Hct 44.1 % (35.5-45.6) 08/26/18 14:58 MCV 89 fl (84-94) 08/26/18 14:58 MCH 30 pg (28-32) 08/26/18 14:58 MCHC 33 % (32-34) 08/26/18 14:58 RDW 14.0 % (13.2-15.2) 08/26/18 14:58 Plt Count 158 K/mm3 (140-440) 08/26/18 14:58 Lymph % (Auto) 22.2 % (13.4-35.0) 08/26/18 14:58 [place] % (Auto) 9.2 % (0.0-7.3) H 08/26/18 14:58 Eos % (Auto) 0.6 % (0.0-4.3) 08/26/18 14:58 Baso % (Auto) 0.9 % (0.0-1.8) 08/26/18 14:58 Lymph # 1.1 K/mm3 (1.2-5.4) L 08/26/18 14:58 [place] # 0.4 K/mm3 (0.0-0.8) 08/26/18 14:58 Eos # 0.0 K/mm3 (0.0-0.4) 08/26/18 14:58 Baso # 0.0 K/mm3 (0.0-0.1) 08/26/18 14:58 Seg Neutrophils % 67.1 % (40.0-70.0) 08/26/18 14:58 Seg Neutrophils # 3.2 K/mm3 (1.8-7.7) 08/26/18 14:58 Sodium 137 mmol/L (137-145) 08/26/18 14:58 Potassium 3.9 mmol/L (3.6-5.0) 08/26/18 14:58 Chloride 102.7 mmol/L (98-107) 08/26/18 14:58 Carbon Dioxide 22 mmol/L (22-30) 08/26/18 14:58 Anion Gap 16 mmol/L 08/26/18 14:58 BUN 18 mg/dL (9-20) 08/26/18 14:58 Creatinine 0.8 mg/dL (0.8-1.5) 08/26/18 14:58 Estimated GFR > 60 ml/min 08/26/18 14:58 BUN/Creatinine Ratio 23 % 08/26/18 14:58 Glucose 142 mg/dL (75-100) H 08/26/18 14:58 Calcium 8.7 mg/dL (8.4-10.2) 08/26/18 14:58 Magnesium 1.60 mg/dL (1.7-2.3) L 08/28/18 13:28 Total Creatine Kinase 62 units/L (55-170) 08/27/18 00:49 CK-MB (CK-2) 1.7 ng/mL (0.0-4.0) 08/27/18 00:49 CK-MB (CK-2) Rel Index 2.7 (0-4) 08/27/18 00:49 Troponin T < 0.010 ng/mL (0.00-0.029) 08/27/18 00:49 NT-Pro-B Natriuret Pep 6923 pg/mL (0-900) H 08/26/18 14:58 Triglycerides 58 mg/dL (2-149) 08/27/18 05:55 Cholesterol 117 mg/dL (50-199) 08/27/18 05:55 LDL Cholesterol Direct 70 mg/dL (50-130) 08/27/18 05:55 HDL Cholesterol 47 mg/dL (40-59) 08/27/18 05:55 Cholesterol/HDL Ratio 2.48 % 08/27/18 05:55 TSH 1.650 mlU/mL (0.270-4.200) 08/28/18 13:28 Free T4 1.31 ng/dL (0.76-1.46) 08/28/18 13:28 Active Medications - Current Medications Current Medications: Generic Name Dose Route Start Last Admin Trade Name Freq PRN Reason Stop Dose Admin Acetaminophen 650 mg 08/26/18 12:06 Tylenol PO Q4H PRN Pain MILD(1-3)/Fever >100.5/YAN Albuterol 2.5 mg 08/26/18 12:06 Proventil IH Q3HRT PRN Shortness Of Breath Aspirin 81 mg 08/27/18 13:00 08/28/18 10:25 Halfprin Ec PO 81 mg QDAY WANDA Administration Carvedilol 12.5 mg 08/26/18 22:00 08/28/18 23:19 Coreg PO Not Given BID WANDA Famotidine 10 mg 08/26/18 22:00 08/28/18 23:15 Pepcid PO 10 mg BID WANDA Administration Furosemide 40 mg 08/26/18 18:00 08/29/18 07:10 Lasix IV Not Given BID@0600,1800 WANDA Milrinone Lactate/Dextrose 20 mg in 100 mls @ 8.831 mls/hr 08/27/18 13:00 08/29/18 07:09 Milrinone-D5w 20 Mg/100 Ml IV 08/30/18 12:59 0.375 mcg/kg/min TITR WANDA 8.831 mls/hr Administration 0.375 MCG/KG/MIN Magnesium Sulfate 2 gm in 50 mls @ 25 mls/hr 08/29/18 10:04 Magnesium Sulfate 2gm/50ml IV 08/29/18 12:03 ONCE ONE Lisinopril 2.5 mg 08/28/18 10:30 08/28/18 10:32 Zestril PO 2.5 mg QDAY WANDA Administration Morphine Sulfate 2 mg 08/26/18 12:06 Morphine IV Q4H PRN Pain, Moderate (4-6) Naloxone HCl 0.1 mg 08/26/18 12:06 Narcan 0.4 Mg/1 Ml IV Q2MIN PRN Res Rate </= 8 or 02 SAT < 92% Nitroglycerin 0.4 mg 08/26/18 12:06 Nitrostat SL .Q5MIN PRN Chest Pain Ondansetron HCl 4 mg 08/26/18 12:06 Zofran IV Q8H PRN Nausea And Vomiting Sodium Chloride 10 ml 08/26/18 22:00 08/28/18 23:19 Sodium Chloride Flush Syringe 10 Ml IV 10 ml BID WANDA Administration Sodium Chloride 10 ml 08/26/18 12:06 Sodium Chloride Flush Syringe 10 Ml IV PRN PRN LINE FLUSH Spironolactone 25 mg 08/27/18 10:00 08/28/18 10:25 Aldactone PO 25 mg QDAY WANDA Administration
[2018-08-29] MEDS: PEPCID PO SCH ×2 (11:42→21:44)
[2018-08-29] MEDS: ALDACTONE PO SCH (11:43)
[2018-08-29] MEDS: COREG PO SCH ×2 (11:43→21:43)
[2018-08-29] MEDS: HALFPRIN EC PO SCH (11:43)
[2018-08-29] MEDS: SODIUM CHLORIDE FLUSH SYRINGE 10 ML IV SCH ×2 (11:43→21:46)
[2018-08-29] MEDS: ZESTRIL PO SCH (11:44)
--- NOTE | 2018-08-29 12:16 | Progress Note ---
Assessment and Plan - Patient Problems (1) Shortness of breath Current Visit: Yes Status: Acute Plan to address problem: Patient presented with shortness of breath and abdominal distention, due to acute on chronic systolic heart failure. He has shown clinical improvement with diuretics, intravenous milrinone and other guidelines directed medical therapy for systolic heart failure. (2) Nonischemic dilated cardiomyopathy Current Visit: Yes Status: Acute Plan to address problem: Patient presented with shortness of breath and abdominal distention, due to acute on chronic systolic heart failure. He has shown clinical improvement with diuretics, intravenous milrinone and other guidelines directed medical therapy for systolic heart failure. (3) Pleural effusion, right Current Visit: Yes Status: Acute Plan to address problem: We will obtain a pulmonary consultation and continue heart failure treatment. (4) Multifocal PVCs Current Visit: Yes Status: Acute Plan to address problem: Patient has a long history of ventricular ectopy which he describes dating back to 2004. We'll continue medical management including optimal beta blockers. Long-term management will include a recommendation for ICD implant if his cardio myopathy persists after 6 months of optimal medical management. Subjective Date of service: 08/29/18 Interval history: Patient looks and feels better, diuresing well, shortness of breath and abdominal distention are resolving, he is still on intravenous milrinone. As reported, his chest x-ray demonstrated a moderate-sized right pleural effusion. Objective Vital Signs Temp Pulse Resp BP BP Pulse Ox 08/29/18 09:17 98.3 F 36 L 18 113/51 96 08/29/18 04:07 98.0 F 68 20 89/40 92 08/28/18 23:37 97.9 F 46 L 20 90/50 95 08/28/18 22:45 18 98 08/28/18 20:16 98.5 F 44 L 16 99/69 96 08/28/18 20:00 77 08/28/18 17:24 97.6 F 61 18 100/72 98 08/28/18 16:52 48 L 37 H 97 08/28/18 15:11 89/62 08/28/18 15:10 40 L 89/62 100 08/28/18 13:53 97.6 F 18 72/35 - Physical Examination General: No Apparent Distress HEENT: Positive: PERRL Neck: Positive: neck supple Cardiac: Positive: Reg Rate and Rhythm Lungs: Positive: Decreased Breath Sounds Neuro: Positive: Grossly Intact Abdomen: Positive: Soft Skin: Positive: Clear Extremities: Absent: edema
--- NOTE | 2018-08-29 14:13 | XRay Report ---
AP CHEST: HISTORY: Pleural effusion A small right pleural effusion is identified which has decreased by 1 or 2 rib levels since 08/26/18. No left pleural effusion. There is compressive atelectasis at the right lung base, otherwise, the lungs are clear. Decreased mild cardiomegaly. IMPRESSION: Small right pleural effusion, decreased since the exam 3 days ago. Mild cardiomegaly.
--- NOTE | 2018-08-29 15:17 | Consultation ---
History of Present Illness Consult date: 08/29/18 Requesting physician: TATUM LONG Reason for consult: pleural effusion History of present illness: 57 y/o male admitted with heart failure. Found to have a right sided pleural effusion thought secondary to heart failure. Has been diuresed and responded well. Cardiology asked us to assess patient given the presence of fluid seen on imaging several days ago prediuresis. Past History Past Medical History: heart failure, hypertension Past Surgical History: Other (eye surgery) Social history: Family history: no significant family history Medications and Allergies Allergies Allergy/AdvReac Type Severity Reaction Status Date / Time No Known Allergies Allergy Verified 08/26/18 10:40 Home Medications Medication Instructions Recorded Confirmed Last Taken Type Coreg 25 mg PO BID 08/28/18 08/28/18 Unknown History Ramipril 10 mg PO DAILY 08/28/18 08/28/18 Unknown History Active Meds: Active Medications Acetaminophen (Tylenol) 650 mg PO Q4H PRN PRN Reason: Pain MILD(1-3)/Fever >100.5/YAN Albuterol (Proventil) 2.5 mg IH Q3HRT PRN PRN Reason: Shortness Of Breath Aspirin (Halfprin Ec) 81 mg PO QDAY [facility] Last Admin: 08/29/18 11:43 Dose: 81 mg Documented by: Carvedilol (Coreg) 12.5 mg PO BID [facility] Last Admin: 08/29/18 11:43 Dose: 12.5 mg Documented by: Famotidine (Pepcid) 10 mg PO BID [facility] Last Admin: 08/29/18 11:42 Dose: 10 mg Documented by: Furosemide (Lasix) 40 mg IV BID@0600,1800 [facility] Last Admin: 08/29/18 07:10 Dose: Not Given Documented by: Milrinone Lactate/Dextrose (Milrinone-D5w 20 Mg/100 Ml) 20 mg in 100 mls @ 8.831 mls/hr IV TITR [facility] Stop: 08/30/18 12:59 Last Admin: 08/29/18 07:09 Dose: 0.375 mcg/kg/min, 8.831 mls/hr Documented by: Lisinopril (Zestril) 2.5 mg PO QDAY [facility] Last Admin: 08/29/18 11:44 Dose: 2.5 mg Documented by: Morphine Sulfate (Morphine) 2 mg IV Q4H PRN PRN Reason: Pain, Moderate (4-6) Naloxone HCl (Narcan 0.4 Mg/1 Ml) 0.1 mg IV Q2MIN PRN PRN Reason: Res Rate </= 8 or 02 SAT < 92% Nitroglycerin (Nitrostat) 0.4 mg SL .Q5MIN PRN PRN Reason: Chest Pain Ondansetron HCl (Zofran) 4 mg IV Q8H PRN PRN Reason: Nausea And Vomiting Sodium Chloride (Sodium Chloride Flush Syringe 10 Ml) 10 ml IV BID [facility] Last Admin: 08/29/18 11:43 Dose: 10 ml Documented by: Sodium Chloride (Sodium Chloride Flush Syringe 10 Ml) 10 ml IV PRN PRN PRN Reason: LINE FLUSH Spironolactone (Aldactone) 25 mg PO QDAY [facility] Last Admin: 08/29/18 11:43 Dose: 25 mg Documented by: Review of Systems All systems: negative Physical Examination Vital signs: Vital Signs Pulse Pulse Ox 112 H 98 08/26/18 12:14 08/26/18 12:14 General appearance: no acute distress, alert Eyes: non-icteric ENT: oropharynx moist Neck: supple, no lymphadenopathy Ascultation: Right: diminished breath sounds (base) Percussion: Bilateral: not dull Tactile fremitus: Bilateral: normal Cardiovascular: regular rate and rhythm Gastrointestinal: normoactive bowel sounds Results - Laboratory Findings CBC and BMP: 08/26/18 14:58 08/26/18 14:58 Abnormal lab findings: Abnormal Labs 08/26/18 08/26/18 08/26/18 14:58 14:58 14:58 [place] % (Auto) 9.2 H Lymph # 1.1 L Glucose 142 H Magnesium NT-Pro-B Natriuret Pep 6923 H 08/28/18 13:28 [place] % (Auto) Lymph # Glucose Magnesium 1.60 L NT-Pro-B Natriuret Pep - Diagnostic Findings Chest x-ray: image reviewed (Repeat CXR shows improvement in effusion, very small and not large enough to tap.) Assessment and Plan 57 y/o male with heart failure and right sided pleural effusion. 1. Secondary to heart failure as there has been significant improvement with diuretic therapy. 2. Remainder of effusion to small to tap 3. Suggest continued diuretic therapy 4. Will sign off, thank you for the consult.
[2018-08-30 06:07] LABS: BUN/Creatinine Ratio 24; Blood Urea Nitrogen 24 mg/dL (9-20); Calcium 8.7 mg/dL (8.4-10.2); Hemolysis Index 2
[2018-08-30] MEDS: LASIX IV SCH (06:36)
[2018-08-30] MEDS: MILRINONE-D5W 20 MG/100 ML 20 MG/100 ML BAG IV SCH (06:40)
[2018-08-30] MEDS: HALFPRIN EC PO SCH (10:19)
[2018-08-30] MEDS: PEPCID PO SCH (10:19)
[2018-08-30] MEDS: SODIUM CHLORIDE FLUSH SYRINGE 10 ML IV SCH (10:20)
[2018-08-30] MEDS: ZESTRIL PO SCH (10:31)
[2018-08-30] MEDS: COREG PO SCH (10:31)
[2018-08-30] MEDS: ALDACTONE PO SCH (10:31)
--- NOTE | 2018-08-30 11:29 | Progress Note ---
Assessment and Plan Chronic systolic heart failure -improved Lifevest placed Right pleural effusion Long history of dilated cardiomyopathy noncompliant with medical therapy for 2 years. Hx of Ventricular ectopy Echocardiogram shows a severe dilated cardiomyopathy with left ventricular ejection fraction approximately 15%. Recommendations: Continue medical management for systolic heart failure. Stable cardiac tompkins. Once discharge, patient will f/u with Dr Darnell at our [place] office September 05 at 2p. Long-term management will include a recommendation for ICD implant if his cardiomyopathy persists after 6 months of optimal medical management. Subjective Date of service: 08/30/18 Interval history: Patient has no complaints. Reports his breathing is better. Sinus rhythm with frequent PVCs on telemetry. Patient remains asymptomatic. Objective Vital Signs Temp Pulse Resp BP Pulse Ox 08/30/18 08:58 98.4 F 50 L 16 88/59 93 08/30/18 04:18 98.0 F 45 L 18 107/34 94 08/30/18 04:00 82 08/30/18 00:00 18 98 08/29/18 23:43 98.0 F 49 L 18 83/32 96 08/29/18 21:43 78 97/50 08/29/18 20:32 98.0 F 40 L 18 90/38 99 08/29/18 20:21 97 08/29/18 20:00 67 08/29/18 17:42 44 L 97/50 99 08/29/18 12:49 98.3 F 39 L 18 96/38 95 08/29/18 12:00 71 18 98 - Physical Examination General: No Apparent Distress HEENT: Positive: PERRL Neck: Positive: trachea midline Cardiac: Positive: Irregularly Regular Lungs: Positive: Decreased Breath Sounds Neuro: Positive: Grossly Intact Extremities: Absent: edema - Labs and Meds Comprehensive Metabolic Panel 08/30/18 Range/Units 05:29 Sodium 137 (137-145) mmol/L Potassium 4.0 (3.6-5.0) mmol/L Chloride 96.1 L (98-107) mmol/L Carbon Dioxide 28 (22-30) mmol/L BUN 24 H (9-20) mg/dL Creatinine 1.0 (0.8-1.5) mg/dL Glucose 97 (75-100) mg/dL Calcium 8.7 (8.4-10.2) mg/dL
[2018-08-30 12:15] VITALS: BP 107/70
[2018-08-30] MEDS ORDERED: COREG PO SCH (14:00)
--- NOTE | 2018-08-30 15:16 | Discharge Summary ---
Providers - Providers Date of Admission: 08/26/18 11:08 Date of discharge: 08/30/18 Attending physician: ALEXI GATICA 08/26/18 10:55 Consult to Physician [CONS] Urgent Comment: Consulting Provider: JASWINDER KENNEDY Physician Instructions: Reason For Exam: CHF, 08/29/18 11:43 Consult to Physician [CONS] Routine Comment: Consulting Provider: SARANYA RIOS Physician Instructions: Reason For Exam: pleural effusion Primary care physician: ZOE MAO Hospitalization Reason for admission: acute on chronic systolic congestive heart failure Condition: Fair Pertinent studies: Chest x-ray echocardiogram Hospital course: 57 year male with past medical hx CHF, last known EF of 32% presenting from direct admit from the PCP office. Patient reports that he has hx of CHF but in the last 2 years has been lost to follow up. He presented to his primary care doctor today complaining of orthopnea for the past 2 weeks. He denies any chest pain, nausea, vomiting or diarrhea, He has been out of his medications for about 2 years. He reports that he was previously evaluated for AICD but at the time patient chose not to proceed. Admitted with acute on chronic systolic congestive heart failure Medications optimized, evaluated by cardiology, received milrinone drip, card iology recommended LifeVest prior to Discharge Case management, set up LifeVest, today patient is comfortable Vital signs reviewed, physical examination no new changes Cleared by cardiology for discharge and follow-up, for evaluation for AICD as outpatient after 6 months If cardiomyopathy persists, Patient is stable at discharge Discharge diagnosis; --Acute on Chronic Systolic Heart failure exacerbation EF 10-15% , on anti-failure medications, Cardiology started milrinone drip Input output monitoring, low sodium diet, fluid restriction possible evaluation for AICD as outpatient in 6 months --Right pleural effusion; secondary to CHF continue diuresis, Pulmonary consult and possible thoracentesis if needed --Hypertension; continue current antihypertensives and when necessary medications --Acute gastritis; PPI, supportive care --DVT prophylaxis; Lovenox Monitor the patient closely and adjust management as needed Ambulate as tolerated LifeVest given to the patient prior to discharge Disposition: DC-01 TO HOME OR SELFCARE Time spent for discharge: 32 min Core Measure Documentation - Palliative Care Palliative Care/ Comfort Measures: Not Applicable - Core Measures Any of the following diagnoses?: heart failure - Heart Failure Discharge Requirements LUIS/ARB for LVSD if EF <40%: Yes Beta kevon at discharge: Yes Exam - Constitutional Vitals: Temp Pulse Resp BP Pulse Ox 97.9 F 98 H 18 107/70 95 08/30/18 12:14 08/30/18 12:14 08/30/18 12:14 08/30/18 12:14 08/30/18 12:14 General appearance: Present: no acute distress, well-nourished - EENT Eyes: Present: PERRL, EOM intact - Neck Neck: Present: supple, normal ROM - Respiratory Respiratory effort: normal Respiratory: bilateral: diminished, negative: rales, rhonchi, wheezing - Cardiovascular Rhythm: regular Heart Sounds: Present: S1 & S2 - Extremities Extremities: no ischemia, pulses intact - Abdominal General gastrointestinal: Present: soft, non-tender, non-distended, normal bowel sounds - Integumentary Integumentary: Present: clear, warm - Musculoskeletal Musculoskeletal: strength equal bilaterally - Psychiatric Psychiatric: appropriate mood/affect, cooperative - Neurologic Neurologic: CNII-XII intact, moves all extremities Plan Activity: advance as tolerated Diet: low salt, other (cardiac diet) Additional Instructions: Low-salt diet. Fluid restriction to less than 1200 mL/24 hours. Strongly advised to comply with medications and diet and follow-up visits. Discharged with Life Vest Follow up with: ZOE MAO MD [Primary Care Provider] - 7 Days ADRIÁN BORDEN MD [Staff Physician] - 7 Days Forms: Work/School Release Form Prescriptions: Spironolactone [Aldactone] 25 mg PO QDAY #30 tablet Carvedilol [Coreg] 6.25 mg PO BID #60 tablet Furosemide [Lasix TAB] 40 mg PO 0600,1800 #60 tablet Lisinopril [Zestril TAB] 2.5 mg PO QDAY #30 tablet
[2018-08-30] MEDS ORDERED: LASIX PO SCH (18:00)
== END 2018-08-30 16:26 | disposition home or self-care (01) | DRG 292 ==
LOC: 4A 10:37 → UNDOADMIN 10:37 → 4A 11:08
PROVIDERS: ADMIT Internal Medicine; ATTEND Internal Medicine
DX: I11.0 Hypertensive heart disease with heart failure (principal); J90 Pleural effusion, not elsewhere classified; J91.8 Pleural effusion in other conditions classified elsewhere; K29.00 Acute gastritis without bleeding; I50.23 Acute on chronic systolic (congestive) heart failure; I42.0 Dilated cardiomyopathy; R73.9 Hyperglycemia, unspecified; E78.5 Hyperlipidemia, unspecified; I49.3 Ventricular premature depolarization; N40.0 Benign prostatic hyperplasia without lower urinary tract symptoms; I49.9 Cardiac arrhythmia, unspecified; Z91.19 Patient's noncompliance with other medical treatment and regimen; Z98.52 Vasectomy status
CPT/HCPCS: 36415; 71045; 80048; 80061; 82550; 82553; 83735; 83880; 84439; 84443; 84484; 85025; 87116; 93005; 93010; 93306; 94760; G0378; J1940; J2260; J3475

== ENCOUNTER 2019-01-27 09:57 | Outpatient (CLI) | payer OTHER ==
[2019-01-30 15:35] LABS: Vitamin D, 25-OH, D2 <4 ng/mL
== END 2019-01-27 09:58 | disposition home or self-care (01) ==
LOC: LAB 09:57
PROVIDERS: ATTEND Internal Medicine
DX: Z13.21 Encounter for screening for nutritional disorder (principal); Z12.5 Encounter for screening for malignant neoplasm of prostate; R73.9 Hyperglycemia, unspecified; N40.0 Benign prostatic hyperplasia without lower urinary tract symptoms
CPT/HCPCS: 36415; 82306; 82607; 83036; 84153